=== PATIENT | male | born 1985 | race Caucasian/White ===

== ENCOUNTER 2017-04-17 15:08 | Outpatient (CLI) | payer OTHER ==
--- NOTE | 2017-04-18 09:21 | XRAY Report ---
RIGHT ANKLE, THREE VIEWS: 04/17/2017 CLINICAL HISTORY: Right ankle pain. FINDINGS: Moderate degree of soft tissue swelling is noted about the lateral aspect of the right ank le. No fracture or bone lesion is seen. Talar dome appears intact. Small posterior calcaneal spur is seen. Base of the fifth metatarsal appears intact. IMPRESSION: 1. MODERATE DEGREE OF LATERAL SOFT TISSUE SWELLING IS NOTED WITHOUT FRACTURE. 2. SMALL POSTERIOR CALCANEAL SPUR. JOB #: [id number] EXT JOB #:[id number]
== END 2017-04-17 15:09 | disposition home or self-care (01) ==
LOC: DI 15:08
PROVIDERS: ATTEND Specialist
DX: M77.31 Calcaneal spur, right foot (principal); R22.41 Localized swelling, mass and lump, right lower limb